=== PATIENT | female | born 1995 | race Caucasian/White ===

== ENCOUNTER 2017-01-17 11:48 | Emergency (ER) | payer MEDICAID ==
[~2017-01-17] VITALS: Ht 154.9 cm; Wt 66.0 kg
[2017-01-17 12:10] VITALS: BP 123/75
[2017-01-17 13:42] LABS: HCG SCREEN NEGATIVE
== END 2017-01-17 18:44 | disposition home or self-care (01) ==
LOC: ER 13:21
DX: N93.8 Other specified abnormal uterine and vaginal bleeding (principal)
CPT/HCPCS: 84703; 99282; 99283

== ENCOUNTER 2017-12-13 19:00 | Emergency (ER) | payer MEDICAID ==
[~2017-12-13] VITALS: Ht 160 cm; Wt 64.0 kg
[2017-12-13 19:08] VITALS: BP 123/70
[2017-12-13] MEDS ORDERED: ACETAMINOPHEN 325MG TABLET PO PRN (19:15)
[2017-12-13 19:48] LABS: BASOPHILS % 0.2 % (0.0-2.0); HEMATOCRIT. 40.5 % (36.0-48.0); HEMOGLOBIN. 13.9 g/dL (12.0-16.0); LYMPHOCYTES % 7.6 % (20.0-50.0); MEAN CORPUSCULAR HEMOGLOBIN 30.7 pg (28.0-32.0); MEAN CORPUSCULAR VOLUME 89.6 fL (81.0-99.0); MEAN PLATELET VOLUME 9.5 fl (7.4-10.4); MONOCYTES % 3.4 % (2.0-8.0); NEUTROPHILS % 88.8 % (40.0-76.0); PLATELET 225 x1000/uL (130-400); RED BLOOD CELL COUNT 4.52 mill/uL (4.2-5.4); RED CELL DISTRIBUTION WIDTH 13.4 % (11.6-14.6)
[2017-12-13 19:55] LABS: CHLORIDE 103 mEq/L (98-107)
== END 2017-12-13 21:02 | disposition left against medical advice (07) ==
LOC: ER 19:00
DX: R10.2 Pelvic and perineal pain (principal); R51 Headache; M79.1 Myalgia
CPT/HCPCS: 36415; 80053; 85025; 99284

== ENCOUNTER 2018-01-28 17:04 | Emergency (ER) | payer MEDICAID ==
[~2018-01-28] VITALS: Ht 162.6 cm; Wt 65.0 kg
[2018-01-28 17:41] LABS: CLARITY URINE CLEAR (CLEAR); COLOR URINE YELLOW (YELLOW); KETONES URINE NEGATIVE (NEGATIVE); LEUKOCYTE ESTERASE URINE 1+ (NEGATIVE); NITRITE URINE NEGATIVE (NEGATIVE); OCCULT BLOOD URINE 1+ (NEGATIVE); PH URINE >=9.0 (4.5-8.0); PROTEIN URINE NEGATIVE (NEGATIVE); SPECIFIC GRAVITY URINE 1.024 (1.005-1.030)
[2018-01-28 18:14] LABS: BASOPHILS % 0.6 % (0.0-2.0); EOSINOPHILS % 0.4 % (0.0-5.0); HEMATOCRIT. 36.5 % (36.0-48.0); HEMOGLOBIN. 12.6 g/dL (12.0-16.0); LYMPHOCYTES % 29.3 % (20.0-50.0); MEAN CORPUSCULAR HEMOGLOBIN 30.7 pg (28.0-32.0); MEAN CORPUSCULAR VOLUME 88.8 fL (81.0-99.0); MEAN PLATELET VOLUME 10.1 fl (7.4-10.4); NEUTROPHILS % 63.7 % (40.0-76.0); PLATELET 234 x1000/uL (130-400); RED BLOOD CELL COUNT 4.11 mill/uL (4.2-5.4); RED CELL DISTRIBUTION WIDTH 13.3 % (11.6-14.6)
[2018-01-28 18:18] LABS: UCG SCREEN POSITIVE
[2018-01-28 18:21] LABS: CHLORIDE 106 mEq/L (98-107)
[2018-01-28 18:28] LABS: *AMPHETAMINES SCREEN URINE NEGATIVE (NEGATIVE); *BARBITURATES SCREEN URINE NEGATIVE (NEGATIVE); *BENZODIAZEPINES SCREEN URINE NEGATIVE (NEGATIVE)
[2018-01-28 18:29] LABS: *COCAINE SCREEN URINE NEGATIVE (NEGATIVE); CANNABINOID URINE SCREEN NEGATIVE (NEGATIVE); METHADONE URINE SCREEN NEGATIVE (NEGATIVE); OPIATES URINE SCREEN NEGATIVE (NEGATIVE); PHENCYCLIDINE URINE SCREEN NEGATIVE (NEGATIVE)
[2018-01-28 18:33] LABS: B-HCG QUANTITATIVE 55 mIU/mL (<3)
[2018-01-28 19:59] VITALS: BP 112/72
== END 2018-01-28 20:01 | disposition home or self-care (01) ==
LOC: ER 18:06
DX: O20.0 Threatened abortion (principal); O23.41 Unspecified infection of urinary tract in pregnancy, first trimester; Z3A.01 Less than 8 weeks gestation of pregnancy
CPT/HCPCS: 36415; 76801; 80048; 80305; 81003; 81025; 84702; 85025; 87086; 99285; A4217; Z7610